=== PATIENT | female | born 1985 | race African-American/Black ===

== ENCOUNTER 2017-03-30 17:43 | Emergency (ER) | payer SELFPAY ==
[~2017-03-30] VITALS: Ht 177.8 cm; Wt 86.4 kg
[~2017-03-30 17:43] MED LIST: CLIN1CAP5 PO; NAPR500 PO
[2017-03-30 17:44] VITALS: BP 133/82; PULSE 87; RESP 18; TEMP 99; O2SAT 100
[2017-03-30] MEDS ORDERED: PENI500T PO (19:10)
[2017-03-30] MEDS ORDERED: TRAM50 PO (19:10)
--- NOTE | 2017-03-30 19:11 | PD ---
HPI Chief Complaint: Oral / Dental Pain or Problem Time Seen by Provider: 18:38 Travel History International Travel<30 days: No Contact w/Intl Traveler<30days: No Traveled to known affect area: No History of Present Illness HPI This is a 31-year-old female here with right upper dental pain and gum swelling 3 days. Patient reports she has a decayed fractured tooth in the location of the pain. Denies fever or chills. Severity is moderate. Unrelieved by over- the-counter Tylenol and ibuprofen. PFSH Past Medical History Medical History: Denies Significant Hx Diminished Hearing: No Tetanus Vaccination: Unknown ?: Not : 1 Para: 0 Miscarriage: 0 : 0 Past Surgical History Eye Surgery: Yes (EYE CORRECTIVE SURGERY CHILD) Social History Alcohol Use: No Tobacco Use: No Substance Use: No Allergies-Medications (Allergen,Severity, Reaction): Coded Allergies: No Known Allergies (Verified Adverse Reaction, Unknown, 03/30/17) Reported Meds & Prescriptions Reported Meds & Active Scripts Active Review of Systems Except as stated in HPI: all other systems reviewed are Neg General / Constitutional: No: Fever Physical Exam Narrative GENERAL: Alert female. Patient is crying due to pain SKIN: Warm and dry. HEAD: Normocephalic. EYES: No injection or drainage. MOUTH: Decayed and fractured right upper molar with surrounding gum erythema/ swelling. No identified abscess. NECK: Supple. Data Data Last Documented VS Vital Signs Date Time Temp Pulse Resp B/P (MAP) Pulse Ox O2 Delivery O2 Flow Rate FiO2 03/30/17 17:44 99.0 87 18 133/82 (99) 100 MDM Medical Decision Making Medical Screen Exam Complete: Yes Emergency Medical Condition: Yes Differential Diagnosis Dentalgia, dental caries, dental abscess Narrative Course This is a 31-year-old female here with a decayed and fractured right upper molar with surrounding gum erythema and swelling. She is nontoxic appearing. Vital signs are stable. Patient will be treated for dental infection. She was given information regarding local dental clinics. Diagnosis Primary Impression: Dental infection Referrals: Dentist Additional Instructions: Antibiotics as prescribed. Make a follow-up appointment with dentist. Take [id number] ibuprofen 800 mg (4 tablets) every 6 hours as needed for pain. Ultram as needed for severe pain. Scripts Tramadol (Ultram) 50 Mg Tab 50 MG PO Q6H Y for PAIN, #10 TAB 0 Refills Prov: Nilda Edmonds 03/30/17 Penicillin V Potassium (Penicillin V Potassium) 500 Mg Tab 500 MG PO Q6H for Infection for 7 Days, #28 TAB 0 Refills Prov: Nilda Edmonds 03/30/17 Disposition: 01 DISCHARGE HOME Condition: Stable Nilda Edmonds Mar 30, 2017 19:11
[2017-03-30] MEDS ORDERED: KETOROLAC TROMETHAMINE 60 MG/2 ML (IM) VIAL IM ONE (19:15)
== END 2017-03-30 19:25 | disposition home or self-care (01) ==
LOC: NEPK 17:43
DX: K04.7 Periapical abscess without sinus (principal)
CPT/HCPCS: 96372; 99284; J1885